=== PATIENT | male | born 1985 | race African-American/Black ===

== ENCOUNTER 2017-08-09 09:50 | Emergency (ER) | payer SELFPAY ==
[~2017-08-09 09:50] MED LIST: LORT7.5T3 PO; NAPR550 PO; PROM1SUP12 PR; TYLE3 PO
== END 2017-08-09 11:16 | disposition left against medical advice (07) ==
LOC: NED 09:50
DX: R10.9 Unspecified abdominal pain (principal); Z53.21 Procedure and treatment not carried out due to patient leaving prior to being seen by health care provider
CPT/HCPCS: 99281